=== PATIENT | female | born 1990 | race African-American/Black ===

== ENCOUNTER 2017-06-01 15:07 | Emergency (ER) | payer MEDICAID ==
[~2017-06-01] VITALS: Ht 160 cm; Wt 60.0 kg
[2017-06-01] MEDS ORDERED: IBUPROFEN 600MG TABLET PO ONE (16:30)
[2017-06-01 16:47] VITALS: BP 130/81
[2017-06-01 17:04] LABS: BASOPHILS % 0.4 % (0.0-2.0); EOSINOPHILS % 7.5 % (0.0-5.0); HEMATOCRIT. 29.5 % (36.0-48.0); HEMOGLOBIN. 10.6 g/dL (12.0-16.0); LYMPHOCYTES % 35.7 % (20.0-50.0); MEAN CORPUSCULAR HEMOGLOBIN 30.7 pg (28.0-32.0); MEAN CORPUSCULAR VOLUME 85.3 fL (81.0-99.0); MEAN PLATELET VOLUME 7.9 fl (7.4-10.4); MONOCYTES % 7.3 % (2.0-8.0); NEUTROPHILS % 49.1 % (40.0-76.0); PLATELET 342 x1000/uL (130-400); RED BLOOD CELL COUNT 3.46 mill/uL (4.2-5.4); RED CELL DISTRIBUTION WIDTH 15.1 % (11.6-14.6)
[2017-06-01 17:39] LABS: CLARITY URINE CLEAR (CLEAR); COLOR URINE YELLOW (YELLOW); GLUCOSE URINE NEGATIVE (NEGATIVE); KETONES URINE NEGATIVE (NEGATIVE); LEUKOCYTE ESTERASE URINE NEGATIVE (NEGATIVE); NITRITE URINE NEGATIVE (NEGATIVE); OCCULT BLOOD URINE 3+ (NEGATIVE); PROTEIN URINE 1+ (NEGATIVE); SPECIFIC GRAVITY URINE 1.015 (1.005-1.030)
== END 2017-06-01 17:47 | disposition home or self-care (01) ==
LOC: ER 16:11
DX: N93.8 Other specified abnormal uterine and vaginal bleeding (principal); D64.9 Anemia, unspecified; R10.9 Unspecified abdominal pain; D57.1 Sickle-cell disease without crisis
CPT/HCPCS: 36415; 76830; 76856; 81001; 85025; 99285

== ENCOUNTER 2017-09-23 11:55 | Emergency (ER) | payer MEDICAID ==
[~2017-09-23] VITALS: Ht 160 cm; Wt 58.0 kg
[2017-09-23 13:55] VITALS: BP 114/87
[2017-09-23 14:15] LABS: CLARITY URINE CLEAR (CLEAR); COLOR URINE YELLOW (YELLOW); GLUCOSE URINE NEGATIVE (NEGATIVE); KETONES URINE NEGATIVE (NEGATIVE); LEUKOCYTE ESTERASE URINE TRACE (NEGATIVE); NITRITE URINE NEGATIVE (NEGATIVE); OCCULT BLOOD URINE NEGATIVE (NEGATIVE); PH URINE 5.5 (4.5-8.0); PROTEIN URINE 1+ (NEGATIVE); SPECIFIC GRAVITY URINE 1.015 (1.005-1.030)
[2017-09-23] MEDS ORDERED: ONDANSETRON HCL 4MG/2ML VIAL IV STA (15:20)
[2017-09-23] MEDS ORDERED: SODIUM CHLORIDE 0.9% 1,000 ML IV ONE (15:30)
[2017-09-23 15:52] LABS: BASOPHILS % 0.6 % (0.0-2.0); HEMATOCRIT. 30.9 % (36.0-48.0); HEMOGLOBIN. 10.9 g/dL (12.0-16.0); LYMPHOCYTES % 29.2 % (20.0-50.0); MEAN CORPUSCULAR HEMOGLOBIN 31.1 pg (28.0-32.0); MEAN CORPUSCULAR VOLUME 87.8 fL (81.0-99.0); MEAN PLATELET VOLUME 8.1 fl (7.4-10.4); MONOCYTES % 7.3 % (2.0-8.0); NEUTROPHILS % 54.9 % (40.0-76.0); PLATELET 344 x1000/uL (130-400); RED BLOOD CELL COUNT 3.52 mill/uL (4.2-5.4); RED CELL DISTRIBUTION WIDTH 14.8 % (11.6-14.6)
[2017-09-23 15:55] LABS: CHLORIDE 107 mEq/L (98-107); INR 1.1; PROTHROMBIN TIME 11.3 sec (9.4-11.6)
[2017-09-23 16:02] LABS: CARBON DIOXIDE 29 mEq/L (21-32)
== END 2017-09-23 17:08 | disposition home or self-care (01) ==
LOC: ER 12:37
DX: J06.9 Acute upper respiratory infection, unspecified (principal); R19.7 Diarrhea, unspecified; D57.1 Sickle-cell disease without crisis
CPT/HCPCS: 36415; 71010; 80053; 81001; 81025; 83690; 85025; 85610; 96361; 96374; 99285; J2405; J7030

== ENCOUNTER 2017-11-05 08:03 | Inpatient (IN) | payer MEDICAID ==
[~2017-11-05] VITALS: Ht 160 cm; Wt 59.0 kg
[2017-11-05] MEDS ORDERED: ONDANSETRON HCL 4MG/2ML VIAL IV STA (11:08)
[2017-11-05] MEDS ORDERED: SODIUM CHLORIDE 0.9% 1,000 ML IV ONE (11:08)
[2017-11-05 11:47] LABS: BASOPHILS % 0.3 % (0.0-2.0); EOSINOPHILS % 1.9 % (0.0-5.0); HEMATOCRIT. 26.9 % (36.0-48.0); HEMOGLOBIN. 9.3 g/dL (12.0-16.0); LYMPHOCYTES % 11.1 % (20.0-50.0); MEAN CORPUSCULAR HEMOGLOBIN 29.6 pg (28.0-32.0); MEAN CORPUSCULAR VOLUME 85.4 fL (81.0-99.0); MEAN PLATELET VOLUME 7.8 fl (7.4-10.4); MONOCYTES % 8.2 % (2.0-8.0); NEUTROPHILS % 78.5 % (40.0-76.0); PLATELET 453 x1000/uL (130-400); RED BLOOD CELL COUNT 3.15 mill/uL (4.2-5.4); RED CELL DISTRIBUTION WIDTH 14.2 % (11.6-14.6)
[2017-11-05 12:03] LABS: CHLORIDE 109 mEq/L (98-107)
[2017-11-05 12:11] LABS: CARBON DIOXIDE 28 mEq/L (21-32)
[2017-11-05 12:12] LABS: CLARITY URINE CLEAR (CLEAR); COLOR URINE YELLOW (YELLOW); KETONES URINE 2+ (NEGATIVE); LEUKOCYTE ESTERASE URINE NEGATIVE (NEGATIVE); NITRITE URINE NEGATIVE (NEGATIVE); OCCULT BLOOD URINE TRACE (NEGATIVE); PROTEIN URINE 3+ (NEGATIVE); SPECIFIC GRAVITY URINE 1.019 (1.005-1.030)
[2017-11-05] MEDS ORDERED: POTASSIUM CHLORIDE 20MEQ TABLET SR PO ONE (12:30)
[2017-11-05 12:32] LABS: HCG SCREEN NEGATIVE
[2017-11-05] MEDS ORDERED: CEFTRIAXONE 1 G PREMIX 50 ML IV ONE (13:15)
[2017-11-05] MEDS ORDERED: AZITHROMYCIN 500 MG in DEXT 5% WATER 250 ML IV STA (13:29)
[2017-11-05] MEDS ORDERED: MAGNESIUM/ALUMINUM HYDROXIDE/SIMETHICONE 30ML UDC PO PRN (15:30)
[2017-11-05] MEDS ORDERED: IPRATROPIUM/ALBUTEROL 0.5-3(2.5)MG/3ML NEB INH PRN (15:30)
[2017-11-05] MEDS ORDERED: GUAIFENESIN 200MG/10ML SUGAR FREE UDC PO PRN (15:30)
[2017-11-05] MEDS ORDERED: LEVOFLOXACIN 500MG PREMIX 100 ML IV SCH (15:30)
[2017-11-05] MEDS ORDERED: ACETAMINOPHEN 325MG TABLET PO PRN (15:30)
[2017-11-05] MEDS: ONDANSETRON HCL 4MG/2ML VIAL IV PRN (16:03)
[2017-11-05] MEDS: MORPHINE SULFATE 4 MG/ML CPJ (NOT FOR IM USE) IV PRN (16:04)
[2017-11-06 05:32] LABS: BASOPHILS % 0.3 % (0.0-2.0); EOSINOPHILS % 1.8 % (0.0-5.0); HEMATOCRIT. 24.1 % (36.0-48.0); HEMOGLOBIN. 8.5 g/dL (12.0-16.0); LYMPHOCYTES % 15.5 % (20.0-50.0); MEAN CORPUSCULAR HEMOGLOBIN 30.2 pg (28.0-32.0); MEAN CORPUSCULAR VOLUME 85.1 fL (81.0-99.0); MEAN PLATELET VOLUME 7.6 fl (7.4-10.4); MONOCYTES % 11.5 % (2.0-8.0); NEUTROPHILS % 70.9 % (40.0-76.0); PLATELET 439 x1000/uL (130-400); RED BLOOD CELL COUNT 2.83 mill/uL (4.2-5.4); RED CELL DISTRIBUTION WIDTH 14.4 % (11.6-14.6)
[2017-11-06 05:48] LABS: CARBON DIOXIDE 26 mEq/L (21-32); CHLORIDE 109 mEq/L (98-107)
[2017-11-06 08:00] VITALS: BP 129/82
[2017-11-06] MEDS: LEVOFLOXACIN 500MG PREMIX 100 ML IV SCH (08:15)
[2017-11-06 09:00] VITALS: BP 129/81
[2017-11-06] MEDS: MORPHINE SULFATE 4 MG/ML CPJ (NOT FOR IM USE) IV PRN (09:18)
[2017-11-06] MEDS: ONDANSETRON HCL 4MG/2ML VIAL IV PRN ×2 (09:18→19:51)
[2017-11-06] MEDS: DEXT 5%/0.45% NACL 1000ML 1,000 ML IV SCH (10:11)
[2017-11-06] MEDS ORDERED: POTASSIUM CHLORIDE 20MEQ TABLET SR PO SCH (10:30)
[2017-11-06 12:00] VITALS: BP 112/64
[2017-11-06 16:00] VITALS: BP 125/70
[2017-11-06] MEDS: KETOROLAC 15MG/ML VIAL IV PRN (19:51)
[2017-11-06] MEDS: CLONIDINE 0.1MG TABLET PO PRN (19:51)
[2017-11-06 20:25] VITALS: BP 150/90
[2017-11-07 00:43] VITALS: BP 109/67
[2017-11-07 04:00] VITALS: BP 109/58
[2017-11-07 07:59] LABS: BASOPHILS % 0.3 % (0.0-2.0); EOSINOPHILS % 8.2 % (0.0-5.0); HEMATOCRIT. 23.6 % (36.0-48.0); HEMOGLOBIN. 8.5 g/dL (12.0-16.0); LYMPHOCYTES % 31.2 % (20.0-50.0); MEAN CORPUSCULAR HEMOGLOBIN 30.8 pg (28.0-32.0); MEAN CORPUSCULAR VOLUME 85.7 fL (81.0-99.0); MEAN PLATELET VOLUME 8.1 fl (7.4-10.4); MONOCYTES % 13.6 % (2.0-8.0); NEUTROPHILS % 46.7 % (40.0-76.0); PLATELET 430 x1000/uL (130-400); RED BLOOD CELL COUNT 2.75 mill/uL (4.2-5.4); RED CELL DISTRIBUTION WIDTH 14.8 % (11.6-14.6)
[2017-11-07 08:00] VITALS: BP 152/71
[2017-11-07 09:07] LABS: CARBON DIOXIDE 24 mEq/L (21-32); CHLORIDE 107 mEq/L (98-107)
[2017-11-07] MEDS: LEVOFLOXACIN 500MG PREMIX 100 ML IV SCH (09:13)
[2017-11-07] MEDS: DEXT 5%/0.45% NACL 1000ML 1,000 ML IV SCH (09:14)
[2017-11-07 12:00] VITALS: BP 164/90
[2017-11-07] MEDS: KETOROLAC 15MG/ML VIAL IV PRN (13:42)
[2017-11-07] MEDS: ONDANSETRON HCL 4MG/2ML VIAL IV PRN (13:42)
[2017-11-07] MEDS: CLONIDINE 0.1MG TABLET PO PRN (13:47)
[2017-11-07 14:32] VITALS: BP 145/67
[2017-11-07 14:36] VITALS: BP 145/67
== END 2017-11-07 15:25 | disposition home or self-care (01) | DRG 139 ==
LOC: ER 08:23 → SUPCPDRO 15:13 → ENRESERV 11-06 07:12 → 6EST 11-06 08:31
PROVIDERS: ADMIT Hospitalist; ATTEND Hospitalist
DX: J18.9 Pneumonia, unspecified organism (principal); D57.1 Sickle-cell disease without crisis; N39.0 Urinary tract infection, site not specified; R19.7 Diarrhea, unspecified; E86.0 Dehydration; E87.6 Hypokalemia; I51.7 Cardiomegaly; N92.6 Irregular menstruation, unspecified; Z82.49 Family history of ischemic heart disease and other diseases of the circulatory system; Z87.01 Personal history of pneumonia (recurrent)
CPT/HCPCS: 36415; 71045; 80053; 81001; 81025; 83690; 83735; 84703; 85025; 87040; 87086; 87804; 96365; 96368; 96375; 99285; J0456; J0696; J1885; J1956; J2270; J2405; J7030; J7060

== ENCOUNTER 2020-01-18 10:53 | Emergency (ER) | payer MEDICAID ==
[~2020-01-18] VITALS: Ht 160 cm; Wt 61.0 kg
[2020-01-18] MEDS ORDERED: SODIUM CHLORIDE 0.9% 1,000 ML IV ONE (12:57)
[2020-01-18] MEDS ORDERED: MAGNESIUM/ALUMINUM HYDROXIDE/SIMETHICONE 30ML UDC PO STA (12:57)
[2020-01-18] MEDS ORDERED: KETOROLAC 30MG/ML VIAL IV STA (12:57)
[2020-01-18] MEDS ORDERED: ONDANSETRON HCL 4MG/2ML INJ IV STA ×2 (12:57→16:01)
[2020-01-18 13:43] LABS: CLARITY URINE CLOUDY (CLEAR); COLOR URINE YELLOW (YELLOW); KETONES URINE TRACE (NEGATIVE); LEUKOCYTE ESTERASE URINE 1+ (NEGATIVE); NITRITE URINE NEGATIVE (NEGATIVE); OCCULT BLOOD URINE NEGATIVE (NEGATIVE); PH URINE 7.5 (4.5-8.0); PROTEIN URINE 3+ (NEGATIVE); SPECIFIC GRAVITY URINE 1.017 (1.005-1.030)
[2020-01-18 13:57] LABS: *AMPHETAMINES SCREEN URINE NEGATIVE (NEGATIVE); *BARBITURATES SCREEN URINE NEGATIVE (NEGATIVE); *BENZODIAZEPINES SCREEN URINE NEGATIVE (NEGATIVE); *COCAINE SCREEN URINE NEGATIVE (NEGATIVE)
[2020-01-18 13:58] LABS: METHADONE URINE SCREEN NEGATIVE (NEGATIVE); PHENCYCLIDINE URINE SCREEN NEGATIVE (NEGATIVE)
[2020-01-18 14:00] LABS: BASOPHILS % 0.8 % (0.0-2.0); EOSINOPHILS % 0.3 % (0.0-5.0); HEMOGLOBIN. 12.8 g/dL (12.0-16.0); LYMPHOCYTES % 13.5 % (20.0-50.0); MEAN CORPUSCULAR HEMOGLOBIN 30.5 pg (28.0-32.0); MEAN CORPUSCULAR VOLUME 88.2 fL (81.0-99.0); MEAN PLATELET VOLUME 8.7 fl (7.4-10.4); MONOCYTES % 4.8 % (2.0-8.0); NEUTROPHILS % 80.6 % (40.0-76.0); PLATELET 347 x1000/uL (130-400); RED CELL DISTRIBUTION WIDTH 14.5 % (11.6-14.6)
[2020-01-18 14:02] LABS: CANNABINOID URINE SCREEN PRESUMTIVE POSITIVE (NEGATIVE); OPIATES URINE SCREEN PRESUMTIVE POSITIVE (NEGATIVE)
[2020-01-18 14:04] LABS: CHLORIDE 109 mEq/L (98-107)
[2020-01-18 14:10] LABS: ETHANOL BLOOD < 10 mg/dL
[2020-01-18] MEDS ORDERED: CEFTRIAXONE 1 G PREMIX 50 ML IV ONE (14:45)
[2020-01-18] MEDS ORDERED: MORPHINE SULFATE 4 MG/ML CPJ (NOT FOR IM USE) IV STA (16:01)
[2020-01-18 17:46] VITALS: BP 121/61
== END 2020-01-18 17:49 | disposition home or self-care (01) ==
LOC: ER 10:53
DX: N30.00 Acute cystitis without hematuria (principal); D57.1 Sickle-cell disease without crisis
CPT/HCPCS: 36415; 74176; 80053; 80305; 80320; 81003; 81025; 83690; 85025; 96365; 96375; 96376; 99284; J0696; J1885; J2270; J2405; J7030; G0480

== ENCOUNTER 2021-03-02 09:59 | Emergency (ER) | payer MEDICAID, OTHER ==
[~2021-03-02] VITALS: Ht 160 cm; Wt 66.0 kg
[2021-03-02] MEDS ORDERED: MORPHINE SULFATE 4 MG/ML CPJ (NOT FOR IM USE) IV STA (10:11)
[2021-03-02] MEDS ORDERED: ONDANSETRON HCL 4MG/2ML INJ IV STA (10:11)
[2021-03-02] MEDS ORDERED: SODIUM CHLORIDE 0.9% 1,000 ML IV ONE (10:15)
[2021-03-02 10:40] LABS: BASOPHILS % 0.5 % (0.0-2.0); EOSINOPHILS % 0.1 % (0.0-5.0); HEMOGLOBIN. 10.1 g/dL (12.0-16.0); LYMPHOCYTES % 9.1 % (20.0-50.0); MEAN CORPUSCULAR HEMOGLOBIN 31.6 pg (28.0-32.0); MEAN CORPUSCULAR VOLUME 87.8 fL (81.0-99.0); MONOCYTES % 5.9 % (2.0-8.0); NEUTROPHILS % 84.4 % (40.0-76.0); PLATELET 363 x1000/uL (130-400); RED BLOOD CELL COUNT 3.19 mill/uL (4.2-5.4); RED CELL DISTRIBUTION WIDTH 14.4 % (11.6-14.6)
[2021-03-02 10:45] LABS: HCG SCREEN POSITIVE
[2021-03-02 10:47] LABS: CHLORIDE 110 mEq/L (98-107)
[2021-03-02 10:48] LABS: INR 1.1; PROTHROMBIN TIME 11.5 sec (9.6-11.0)
[2021-03-02 10:50] LABS: ETHANOL BLOOD < 10 mg/dL
[2021-03-02] MEDS ORDERED: ACETAMINOPHEN 325MG TABLET PO ONE (13:00)
[2021-03-02] MEDS ORDERED: DEXT 5%/0.9% NACL 1,000 ML IV ONE (13:00)
[2021-03-02 15:02] LABS: CLARITY URINE CLEAR (CLEAR); COLOR URINE YELLOW (YELLOW); KETONES URINE 2+ (NEGATIVE); LEUKOCYTE ESTERASE URINE NEGATIVE (NEGATIVE); NITRITE URINE NEGATIVE (NEGATIVE); OCCULT BLOOD URINE NEGATIVE (NEGATIVE); PH URINE 7.5 (4.5-8.0); PROTEIN URINE 2+ (NEGATIVE); SPECIFIC GRAVITY URINE 1.012 (1.005-1.030)
[2021-03-02 15:25] LABS: *AMPHETAMINES SCREEN URINE NEGATIVE (NEGATIVE); *BARBITURATES SCREEN URINE NEGATIVE (NEGATIVE); *BENZODIAZEPINES SCREEN URINE NEGATIVE (NEGATIVE)
[2021-03-02 15:26] LABS: *COCAINE SCREEN URINE NEGATIVE (NEGATIVE); METHADONE URINE SCREEN NEGATIVE (NEGATIVE)
[2021-03-02 15:27] LABS: PHENCYCLIDINE URINE SCREEN NEGATIVE (NEGATIVE)
[2021-03-02 15:32] LABS: CANNABINOID URINE SCREEN PRESUMTIVE POSITIVE (NEGATIVE); OPIATES URINE SCREEN PRESUMTIVE POSITIVE (NEGATIVE)
[2021-03-02 18:31] VITALS: BP 125/83
[2021-03-02] MEDS ORDERED: METOCLOPRAMIDE HCL 10MG/2ML VIAL IV ONE (18:45)
== END 2021-03-02 18:29 | disposition admitted as inpatient to this hospital (09) ==
LOC: ER 10:22
DX: O26.891 Other specified pregnancy related conditions, first trimester (principal); D57.00 Hb-SS disease with crisis, unspecified; O99.011 Anemia complicating pregnancy, first trimester; R10.9 Unspecified abdominal pain; Z3A.01 Less than 8 weeks gestation of pregnancy
CPT/HCPCS: 36415; 71045; 76700; 76801; 76817; 80053; 80305; 80320; 81003; 81025; 83605; 83690; 84484; 84702; 84703; 85025; 85044; 85610; 86850; 86900; 86901; 93005; 96374; 96375; 99285; J2270; J2405; J2765; J7030; J7042; G0480

== ENCOUNTER 2021-03-07 07:47 | Emergency (ER) | payer OTHER ==
[~2021-03-07] VITALS: Ht 162.6 cm; Wt 52.0 kg
[2021-03-07 08:23] VITALS: BP 115/70
[2021-03-07 08:43] LABS: CHLORIDE 108 mEq/L (98-107)
[2021-03-07] MEDS ORDERED: ACETAMINOPHEN 325MG TABLET PO ONE (08:45)
[2021-03-07 09:06] LABS: B-HCG QUANTITATIVE 2207 mIU/mL (<3)
[2021-03-07] MEDS ORDERED: POTASSIUM CHLORIDE 20MEQ TABLET SR PO SCH (09:15)
[2021-03-07 09:33] LABS: BASOPHILS % 0.6 % (0.0-2.0); HEMATOCRIT. 24.6 % (36.0-48.0); HEMOGLOBIN. 8.9 g/dL (12.0-16.0); LYMPHOCYTES % 21.5 % (20.0-50.0); MEAN CORPUSCULAR HEMOGLOBIN 32.1 pg (28.0-32.0); MEAN CORPUSCULAR VOLUME 88.7 fL (81.0-99.0); MEAN PLATELET VOLUME 8.5 fl (7.4-10.4); MONOCYTES % 9.1 % (2.0-8.0); NEUTROPHILS % 66.8 % (40.0-76.0); PLATELET 280 x1000/uL (130-400); RED BLOOD CELL COUNT 2.77 mill/uL (4.2-5.4)
[2021-03-07] MEDS ORDERED: POTA20TA82 MT (10:16)
== END 2021-03-07 10:41 | disposition home or self-care (01) ==
LOC: ER 07:47
DX: O03.9 Complete or unspecified spontaneous abortion without complication (principal); N93.9 Abnormal uterine and vaginal bleeding, unspecified; D64.9 Anemia, unspecified; E87.6 Hypokalemia; D57.1 Sickle-cell disease without crisis
CPT/HCPCS: 36415; 76801; 76817; 80053; 84702; 85025; 86850; 86900; 86901; 93005; 99285; Z7610

== ENCOUNTER 2025-04-11 08:24 | Emergency (ER) | payer MEDICAID, OTHER ==
[~2025-04-11] VITALS: Ht 160 cm; Wt 58.0 kg
[~2025-04-11 08:24] MED LIST: POTA-204 MT
[2025-04-11 08:36] VITALS: O2SAT 100
[2025-04-11 09:06] LABS: BASOPHILS % 0.5 % (0.0-2.0); HEMATOCRIT. 24.3 % (36.0-48.0); HEMOGLOBIN. 8.6 g/dL (12.0-16.0); LYMPHOCYTES % 24.2 % (20.0-50.0); MEAN CORPUSCULAR HEMOGLOBIN 31.6 pg (28.0-32.0); MEAN CORPUSCULAR HGB CONC 35.2 g/dL (31.0-37.0); MEAN CORPUSCULAR VOLUME 89.8 fL (81.0-99.0); MEAN PLATELET VOLUME 7.8 fl (7.4-10.4); MONOCYTES % 7.8 % (2.0-8.0); NEUTROPHILS % 65.5 % (40.0-76.0); PLATELET 361 x1000/uL (130-400); RED BLOOD CELL COUNT 2.71 mill/uL (4.2-5.4); RED CELL DISTRIBUTION WIDTH 14.6 % (11.6-14.6); WHITE BLOOD COUNT 11.4 x1000/uL (4.5-11.0)
[2025-04-11 09:11] LABS: CARBON DIOXIDE 25 mEq/L (21-32); CHLORIDE 111 mEq/L (98-107); SODIUM 142 mEq/L (136-145)
[2025-04-11 09:12] LABS: CALCIUM 9.7 mg/dL (8.7-10.4)
[2025-04-11 09:17] LABS: CREATININE 0.6 mg/dL (0.6-1.0); GLUCOSE 101 mg/dL (70-105); HCG SCREEN POSITIVE; UREA NITROGEN BLOOD 8 mg/dL (9-23)
[2025-04-11 09:20] LABS: B-HCG QUANTITATIVE > 1000 mIU/mL (<6)
[2025-04-11 11:28] VITALS: BP 113/60; PULSE 65; RESP 14; TEMP 36.7; O2SAT 100
== END 2025-04-11 12:10 | disposition home or self-care (01) ==
LOC: ER 08:24
DX: O02.1 Missed abortion (principal); O03.38 Urinary tract infection following incomplete spontaneous abortion; O99.011 Anemia complicating pregnancy, first trimester; Z3A.09 9 weeks gestation of pregnancy
CPT/HCPCS: 36415; 76801; 80048; 84702; 84703; 85025; 86850; 86900; 99284